=== PATIENT | male | born 1955 | race Caucasian/White ===

== ENCOUNTER 2018-01-05 07:00 | Emergency (ER) | payer BC ==
[2018-01-05 07:21] VITALS: BP 142/82
--- NOTE | 2018-01-05 07:31 | UC ---
Lower Extremity/Ankle HPI - HPI Summary HPI Summary: pain left great toe x 1 week + redness, swelling, no known injury hx of Gout - History of Current Complaint Chief Complaint: UCSkin Stated Complaint: LEFT BIG TOE COMPLAINT Time Seen by Provider: 01/05/18 07:11 Hx Obtained From: Patient Onset/Duration: Gradual Onset, Lasting Weeks - 1, Still Present Severity Initially: Moderate Severity Currently: Moderate Pain Intensity: 0 Aggravating Factor(s): Standing, Ambulation Alleviating Factor(s): Nothing Able to Bear Weight: Yes - Risk Factors Gout Risk Factors: Age Over 40, Male, Obesity - Allergies/Home Medications Allergies/Adverse Reactions: Allergies Allergy/AdvReac Type Severity Reaction Status Date / Time duck eggs Allergy Vomiting Uncoded 01/05/18 07:12 Home Medications: Home Medications Esomeprazole(NF) [NEXium(NF)] 20 mg PO DAILY 01/05/18 [History Confirmed ] Tamsulosin CAP* [Flomax CAP*] 0.4 mg PO DAILY 01/05/18 [History Confirmed ] PMH/Surg Hx/FS Hx/Imm Hx - Additional Past Medical History Additional PMH: BPH, GOUT GI/ History: Gastroesophageal Reflux - Surgical History Surgical History: Yes Surgery Procedure, Year, and Place: APPENDECTOMY. compartment syndrome right [place] about 1989. Lt KNEE - MMT. Rt THUMB-ARTHRITIS IN [place]-10/13/15 ( OK'D BY DR CAUSEY - 1.5T). Lt THUMB -2008 - Family History Known Family History: Negative: Diabetes - Social History Alcohol Use: None Substance Use Type: None Smoking Status (MU): Never Smoked Tobacco - Immunization History Most Recent Tetanus Shot: UNKNOWN Review of Systems Constitutional: Negative Skin: Negative Eyes: Negative ENT: Negative Respiratory: Negative Cardiovascular: Negative Is Patient Immunocompromised?: No All Other Systems Reviewed And Are Negative: Yes Physical Exam Triage Information Reviewed: Yes Appearance: Well-Appearing, No Pain Distress, Obese Vital Signs: Initial Vital Signs Temp 97.9 F 01/05/18 07:15 Pulse 77 01/05/18 07:15 Resp 18 01/05/18 07:15 BP 142/82 01/05/18 07:15 Pulse Ox 96 01/05/18 07:15 Vital Signs Reviewed: Yes Eyes: Positive: Conjunctiva Clear ENT: Positive: Normal ENT inspection, Hearing grossly normal, Pharynx normal Neck: Positive: Supple, Nontender, No Lymphadenopathy Respiratory: Positive: Chest non-tender, Lungs clear, Normal breath sounds Cardiovascular: Positive: RRR, No Murmur, Pulses Normal Musculoskeletal: Positive: Other: - LEFT GREAT TOE : + SWELLING AND ERYTHEMA MTP JOINT Lower Extremity Course/Dx - Differential Dx/Diagnosis Provider Diagnoses: GOUT Discharge - Discharge Plan Condition: Stable Disposition: HOME Prescriptions: Indomethacin CAP* [Indocin CAP*] 50 mg PO TID PRN #15 cap PRN Reason: Pain Patient Education Materials: Gout (ED) Referrals: Zeny Arthur PA [Primary Care Provider] - 7 Days
[2018-01-05] MEDS: Indomethacin CAP* 25 MG CAP PO ONE (07:40)
== END 2018-01-05 07:41 | disposition home or self-care (01) ==
LOC: UCCORT 07:00
DX: M10.9 Gout, unspecified (principal); K21.9 Gastro-esophageal reflux disease without esophagitis; Z91.012 Allergy to eggs
CPT/HCPCS: 99212; A9270-GY; G0463

== ENCOUNTER 2018-11-11 12:40 | Emergency (ER) | payer BC ==
[2018-11-11 13:33] VITALS: BP 122/75
--- NOTE | 2018-11-11 13:43 | UC ---
Lower Extremity/Ankle HPI - HPI Summary HPI Summary: 63 yo male presents with LEFT leg injury sustained about 1 hour [employer]. He tells me that there was a patch of ice and he slipped - his left leg stretched far out into the air. Did not fall. He felt a painful pull in his left hamstring. He is ambulatory with a cane at baseline due to a knee operation in 2016 and continues to use this time. He has applied ice to the area and taken ibuprofen with no relief. Denies numbness or tingling. - History of Current Complaint Chief Complaint: UCLowerExtremity Stated Complaint: L LEG INJURY (FROM A FALL) Time Seen by Provider: 11/11/18 13:43 Hx Obtained From: Patient Onset/Duration: Sudden Onset Severity Initially: Severe Severity Currently: Severe Pain Intensity: 8 Pain Scale Used: 0-10 Numeric Aggravating Factor(s): Standing, Ambulation Able to Bear Weight: Yes - Allergies/Home Medications Allergies/Adverse Reactions: Allergies Allergy/AdvReac Type Severity Reaction Status Date / Time duck eggs Allergy Vomiting Uncoded 11/11/18 13:29 Home Medications: Home Medications Ibuprofen TAB* [Motrin TAB* 600 MG] 600 mg PO Q6H PRN 11/11/18 [History Confirmed 11/11/18] Pramipexole TAB* [Mirapex TAB*] 0.5 mg PO BEDTIME 11/11/18 [History Confirmed ] PMH/Surg Hx/FS Hx/Imm Hx - Additional Past Medical History Additional PMH: BPH Gout GI/ History: Gastroesophageal Reflux - Surgical History Surgical History: Yes Surgery Procedure, Year, and Place: APPENDECTOMY. compartment syndrome right [place] about 1989. Lt KNEE - MMT. Rt THUMB-ARTHRITIS IN [place]-10/13/15 ( OK'D BY DR CAUSEY - 1.5T). Lt THUMB -2008. rt knee replacement - Family History Known Family History: Negative: Diabetes - Social History Lives: With Family Alcohol Use: None Substance Use Type: None Smoking Status (MU): Never Smoked Tobacco - Immunization History Most Recent Tetanus Shot: UNKNOWN Review of Systems All Other Systems Reviewed And Are Negative: Yes Constitutional: Positive: Negative Skin: Positive: Negative Respiratory: Positive: Negative Cardiovascular: Positive: Negative Neurovascular: Positive: Negative Musculoskeletal: Positive: Other: - Left hamstring pain Neurological: Positive: Negative Psychological: Positive: Negative Physical Exam - Summary Physical Exam Summary: GENERAL: NAD. WDWN. SKIN: No rashes, sores, lesions, or open wounds. CHEST: No accessory muscle use. Breathing comfortably and in no distress. CV: . Pulses intact popliteal, PT, and DP. Cap refill <2seconds MSK: LEFT LEG: FROM, but limited extension due to pain. Hamstring/posterior thigh tightness and pain from SI to posterior distal thigh. No ecchymosis. NEURO: Alert. Sensations intact and symmetric B/L LEs PSYCH: Age appropriate behavior. Triage Information Reviewed: Yes Vital Signs: Initial Vital Signs Temp 98.1 F 11/11/18 13:28 Pulse 100 11/11/18 13:28 Resp 15 11/11/18 13:28 BP 122/75 11/11/18 13:28 Pulse Ox 97 11/11/18 13:28 Vital Signs Reviewed: Yes Lower Extremity Course/Dx - Course Course Of Treatment: Suspect muscle strain. BHASKAR wrap applied. Advised to continue with RICE and rx for norco. Advised to f/u with Orthopedics as soon as possible for further eval - he has seen [facility] in the past and prefers to go there if possible. - Differential Dx/Diagnosis Provider Diagnosis: Left hamstring muscle strain Discharge - Sign-Out/Discharge Documenting (check all that apply): Patient Departure All imaging exams completed and their final reports reviewed: No Studies - Discharge Plan Condition: Stable Disposition: HOME Prescriptions: Hydrocodone/Acetaminophen [[place] 5-325 Tablet] 1 each PO Q8H PRN #12 tablet MDD 3 PRN Reason: Pain Patient Education Materials: Hamstring Injury (ED) Referrals: Tia Khan [Primary Care Provider] - Yina Zimmer MD [Medical Doctor] - If Needed Additional Instructions: If you develop a fever, shortness of breath, chest pain, new or worsening symptoms - please call your PCP or go to the ED. Please follow up with Orthopedics as soon as possible for further evaluation of your hamstring injury - Billing Disposition and Condition Condition: STABLE Disposition: Home
== END 2018-11-11 14:06 | disposition home or self-care (01) ==
LOC: UCCORT 12:40
DX: S76.812A Strain of other specified muscles, fascia and tendons at thigh level, left thigh, initial encounter (principal); X50.0XXA Overexertion from strenuous movement or load, initial encounter; Y93.29 Activity, other involving ice and snow; Y92.9 Unspecified place or not applicable
CPT/HCPCS: 99212; G0463